=== PATIENT | female | born 1950 | race Caucasian/White ===

== ENCOUNTER 2018-09-08 03:08 | Inpatient (IN) | payer MEDICARE, OTHER ==
[2018-09-08] MEDS ORDERED: Ondansetron PF 4 MG/2 ML Vial ONE ×2 (03:30→09:10)
[2018-09-08] MEDS ORDERED: Morphine 4 MG/ML VIAL ONE ×4 (03:30→09:15)
[2018-09-08 03:36] LABS: #Lymphocytes 1.4 thou/uL (1.20-3.40); #Monocytes 0.5 thou/uL (0.11-0.59); #Neutrophils 8.4 thou/uL (1.40-6.50); %Basophils 0.4 % (0.0-1.0); %Eosinophils 0.5 % (0.0-10.0); %Lymphocytes 13.3 % (21.0-51.0); %Monocytes 4.8 % (0.0-10.0); %Neutrophils 81.1 % (42.0-75.0); Hemoglobin 15.2 g/dL (12.0-16.0); Mean Corpuscular HGB CONC 34.1 g/dL (32.0-36.0); Mean Corpuscular Volume 96.9 fL (78.0-98.0); Mean Platelet Volume 7.9 fL (7.4-10.4); Platelet Count 219 thou/uL (130-400); RBC Distribution Width 11.4 % (11.5-14.5); Red Blood Cell (RBC) Count 4.59 mill/uL (4.20-5.40); White Blood Cell (WBC) Count 10.4 thou/uL (4.8-10.8)
[2018-09-08 03:59] LABS: ALT (SGPT) 14 U/L (8-55); AST (SGOT) 22 U/L (5-34); Albumin 4.2 g/dL (3.4-4.8); Alkaline Phosphatase 94 U/L (40-150); Anion Gap 17 mmol/L (10-20); BUN (Urea Nitrogen) 18 mg/dL (9.8-20.1); Bilirubin, Total 0.6 mg/dL (0.2-1.2); Calc. Creatinine Clearance 0 mL/min (70-130); Calcium 9.9 mg/dL (7.8-10.44); Carbon Dioxide 24 mmol/L (23-31); Chloride 102 mmol/L (98-107); Estimated GFR-MDRD 65; Globulin 3.8 g/dL (2.4-3.5); Glucose 133 mg/dL (80-115); Lipase 6 U/L (8-78); Potassium 4.5 mmol/L (3.5-5.1); Sodium 138 mmol/L (136-145)
[2018-09-08] MEDS ORDERED: Midazolam HCl 2 mg/2 ml Vial ONE (05:43)
[2018-09-08] MEDS ORDERED: Lidocaine 2% 11 ML SYR FS SCH (06:00)
--- NOTE | 2018-09-08 07:34 | CT ---
CT OF THE ABDOMEN AND PELVIS WITH IV CONTRAST: Date: 09/08/18 INDICATION: Abdominal pain with lower abdominal pain beginning around 1800 hours last night with nausea and vomit ing. COMPARISON: CT of the abdomen and pelvis dated 12/05/14. FINDINGS: There are dilated loops of small bowel within the central abdomen and right lower quadrant with trans ition to normal caliber bowel within the right lower quadrant of the abdomen. Findings are suspicious for presence of a partial small bowel obstruction with a transition zone in the right lower quadrant of the abdomen, most evident on image 66 of series 2. This is in a similar location than on the prio r exam. Downstream small bowel are decompressed with accentuation of the wall suggesting presence of a component of enteritis. Small amount of free fluid is present within the pelvis and right lower debora drant mesentery. The terminal ileum has a normal appearance. There is a normal appendix in the right lower quadrant. Gas is present within the colon and rectum. Bladder is unremarkable appearing. The gallbladder is surgically absent. The pancreas, spleen, liver, adrenal glands, and kidneys are no rmal appearing. No acute osseous abnormality is evident. IMPRESSION: Findings suspicious for a moderate grade partial small bowel obstruction with transition zone seen wi thin the right lower quadrant of the abdomen. There is some mild free fluid present within the right lower quadrant of the abdomen and pelvis. The distal nonobstructed small bowel is decompressed accent uating the woods. A component of enteritis cannot be entirely excluded, but is felt to be less likely . The terminal ileum itself has a normal appearance. Surgical consultation is recommended. POS: [facility]
[2018-09-08] MEDS ORDERED: Ketorolac Tromethamine 30 MG/ML VIAL IVP PRN (07:40)
[2018-09-08] MEDS ORDERED: Acetaminophen 1,000 MG in Premix Bag 1 BAG IVPB PRN (07:40)
[2018-09-08] MEDS ORDERED: Ketorolac Tromethamine 30 MG/ML VIAL IVP SCH (07:45)
[2018-09-08] MEDS ORDERED: Acetaminophen 1,000 MG in Premix Bag 1 BAG IVPB SCH (07:45)
[2018-09-08] MEDS ORDERED: Morphine 4 MG/ML VIAL SLOW IVP PRN ×2 (07:57→08:00)
--- NOTE | 2018-09-08 08:09 | RAD ---
CHEST 1 VIEW: Date: 09/08/18 HISTORY: NG tube placement. COMPARISON: None. FINDINGS: Normal cardiac silhouette. Pulmonary vessels and hilum are normal. Visualized costophrenic angles and lung parenchyma are clear. Current study is not tailored to assess for pneumothorax as the lung apic es are excluded. Nasogastric tube terminates in the left upper quadrant. IMPRESSION: Nasogastric tube terminates in the left upper quadrant. POS: [facility]
[2018-09-08] MEDS ORDERED: Pantoprazole 40 MG VIAL ONE (09:00)
[2018-09-08] MEDS: Pantoprazole 40 MG VIAL IVP SCH (09:09)
[2018-09-08] MEDS ORDERED: Ketorolac Tromethamine 30 MG/ML VIAL ONE (09:10)
[2018-09-08] MEDS: Ondansetron PF 4 MG/2 ML Vial IVP PRN ×3 (09:14→22:35)
[2018-09-08] MEDS: Morphine 4 MG/ML VIAL SLOW IVP PRN ×5 (09:17→22:21)
--- NOTE | 2018-09-08 09:46 | HP ---
HISTORY OF PRESENT ILLNESS: Trisha Brooks is a 68-year-old female, single, lives alone, experienced acute onset of abdominal pain yesterday associated with nausea and vomiting. Last bowel movement was yesterday morning prior to the onset of the pain. The pain was so severe, she presented to the emergency room after failing to manage this at home. In the emergency room, she was noted to have a normal comprehensive metabolic profile, white count 10, hemoglobin 15. Abdominopelvic CAT scan revealed findings suggestive of partial bowel obstruction. She does have stool throughout her colon. She had an NG-tube placed to about 65 cm. This has given her a very little relief. She continues to complain of abdominal pain, generalized. The patient reports having experienced a similar episode in 2014, and she was admitted to this facility and managed nonoperatively. She was discharged home the next day after tolerating diet and passing flatus. In the interval, she has not had any problems. She has not had any episodes of pain similar to these 2 episodes. ALLERGIES: NONE. SOCIAL HISTORY: Tobacco, none. Alcohol, none. MEDICATIONS: 1. Ambien 5 mg at bedtime. 2. Simvastatin 40 mg at bedtime. 3. Aspirin 81 mg a day. PAST SURGICAL HISTORY: in the past, hysterectomy without salpingo-oophorectomy. Laparoscopic cholecystectomy. She had a colonoscopy last year. PAST MEDICAL HISTORY: Elevated cholesterol and anxiety. REVIEW OF SYSTEMS: Ten-point noncontributory. CARDIAC: Noncontributory. PULMONARY: Noncontributory. PHYSICAL EXAMINATION: VITAL SIGNS: Respiratory rate 22, temperature 98.2 degrees, blood pressure 141/83, and heart rate 100. HEAD, EARS, EYES, NOSE AND THROAT: Unremarkable. LUNGS: Clear to auscultation. CARDIAC: Regular rate and rhythm without murmur or gallop. ABDOMEN: Soft. Bowel sounds are minimal. Diffuse tenderness without peritoneal signs. She has voluntary guarding. EXTREMITIES: No ankle edema. Homans negative. NEUROLOGIC: Intact. No focal deficit. Sclerae are nonicteric. SKIN: Normal. No neck masses. Palpable radial and pedal pulses. No lymphadenopathy. ASSESSMENT AND PLAN: History and exam and imaging consistent with bowel obstruction, possibly partial. She has not had a bowel movement since yesterday morning. She has not passed flatus since being in the hospital. NG-tube has given her minimal relief. We will allow sips and chips, provide analgesics, obtain abdominal x-rays. We will repeat abdominal x-rays today, continue NG-tube suction, and make further recommendation based on clinical course, most likely obtain a small-bowel follow-through through her NG-tube tomorrow, Friday. Job ID: [id number]
[2018-09-08] MEDS: Lactated Ringer's 1,000 ML IV SCH ×2 (11:40→18:04)
[2018-09-08 12:37] VITALS: BMI 43.2
[2018-09-08 18:36] LABS: Bilirubin Small (Negative); Blood, Urine Negative (Negative); Clarity CLEAR (Clear); Glucose, Urine (Dipstick) Negative (Negative); Leukocyte Negative (Negative); Nitrite Negative (Negative); Protein, Urine (Dipstick) Trace mg/dL (Neg-Trace); pH, Urine 5.5 (5.0-9.0)
[2018-09-08 18:38] LABS: Specific Gravity, Urine Greater than 1.060 (1.002-1.036)
--- NOTE | 2018-09-08 18:40 | RAD ---
KUB AND UPRIGHT: 09/08/18 HISTORY: Followup small bowel obstruction with NG tube placement. There is air within some slightly distended small bowel loops. There is some air within the colon. An NG tube is seen. The tip is in the fundus region of the stomach. The upright film does not include t he hemidiaphragms and evaluation for free air is not possible. In reviewing the previous CT done luiz ier, the degree of small bowel distention is felt to be similar. IMPRESSION: 1. Stable distention to the small bowel loops. 2. NG tube with the tip in the left upper quadrant of the abdomen. POS: [facility]
[2018-09-08] MEDS ORDERED: Enoxaparin Sodium 40 MG/0.4 ML SYRINGE SC SCH (21:00)
[2018-09-09] MEDS: Lactated Ringer's 1,000 ML IV SCH ×3 (00:19→17:09)
[2018-09-09 06:55] LABS: #Eosinphils 0.1 thou/uL (0.0-0.7); #Lymphocytes 1.5 thou/uL (1.20-3.40); #Monocytes 0.6 thou/uL (0.11-0.59); #Neutrophils 4.3 thou/uL (1.40-6.50); %Basophils 0.1 % (0.0-1.0); %Eosinophils 1.3 % (0.0-10.0); %Lymphocytes 22.5 % (21.0-51.0); %Monocytes 9.5 % (0.0-10.0); %Neutrophils 66.6 % (42.0-75.0); Hemoglobin 12.7 g/dL (12.0-16.0); Mean Corpuscular HGB CONC 33.3 g/dL (32.0-36.0); Mean Corpuscular Hemoglobin 32.7 pg (27.0-31.0); Mean Corpuscular Volume 98.3 fL (78.0-98.0); Mean Platelet Volume 7.7 fL (7.4-10.4); Platelet Count 167 thou/uL (130-400); RBC Distribution Width 11.3 % (11.5-14.5); Red Blood Cell (RBC) Count 3.89 mill/uL (4.20-5.40); White Blood Cell (WBC) Count 6.4 thou/uL (4.8-10.8)
[2018-09-09 07:09] LABS: ALT (SGPT) 15 U/L (8-55); AST (SGOT) 18 U/L (5-34); Albumin 3.5 g/dL (3.4-4.8); Alkaline Phosphatase 70 U/L (40-150); Anion Gap 10 mmol/L (10-20); BUN (Urea Nitrogen) 21 mg/dL (9.8-20.1); Bilirubin, Total 1.2 mg/dL (0.2-1.2); Calc. Creatinine Clearance 113 mL/min (70-130); Calcium 8.9 mg/dL (7.8-10.44); Carbon Dioxide 31 mmol/L (23-31); Chloride 103 mmol/L (98-107); Estimated GFR-MDRD 70; Globulin 2.8 g/dL (2.4-3.5); Glucose 101 mg/dL (80-115); Potassium 4.5 mmol/L (3.5-5.1); Protein, Total 6.3 g/dL (6.0-8.3); Sodium 139 mmol/L (136-145)
--- NOTE | 2018-09-09 10:19 | RAD ---
SMALL BOWEL FOLLOW THROUGH: INDICATION: Small bowel obstruction. COMPARISON: Comparison is made to 09/08/2018 CT exam. FINDINGS: The enteric contrast administration was performed with radiographic assessment for 1-1/2 hours. Ther e is contrast opacification of mildly distended loops of small bowel. By 1-1/2 hours, there is contr ast traversing the colon to the level of the rectum. IMPRESSION: Persistent mild distention of small bowel. There is contrast traversing to the level of the rectum by 1-1/2 hours. Findings are most consistent with a partial, low-grade bowel obstruction/ileus. POS: [facility]
[2018-09-09] MEDS: Pantoprazole 40 MG VIAL IVP SCH (10:36)
[2018-09-09] MEDS ORDERED: MD-Gastroview 120 ML BOT ONE (11:35)
[2018-09-09 16:18] VITALS: TEMP 97.9
--- NOTE | 2018-09-09 18:47 | PRG ---
DATE OF SERVICE: 09/09/2018 SUBJECTIVE: Trisha Brooks pulled out her NG tube this morning. OBJECTIVE: Temperature 97.9, heart rate 98, and blood pressure 112/70. NG tube output was negligible. She underwent a Gastrografin small-bowel follow-through with oral consumption of Gastrografin. Study revealed contrast traversed to the small bowel and into the colon with 1-1/2 hours. There were some mildly distended loops of small bowel. The patient has had multiple bowel movements and is tolerating her diet. She is not having any abdominal pain. LABORATORY DATA: White count 6, hemoglobin 12.7. Comprehensive metabolic profile normal. PLAN: Plan is for discharge home and I will follow up as needed. Resume home medication. She takes one [place] a day for knee pain, [place] 10/325, [facility]. I have told her to avoid taking this and that she should be able to manage her knee pain with Tylenol, nonsteroidal anti-inflammatory agents, and Ultram if necessary. She should avoid narcotics. She should take MiraLAX daily, fiber daily. She will be discharged home today. Follow up in my office as needed. Job ID: [id number]
--- NOTE | 2018-09-09 19:19 | DIS ---
DATE OF ADMISSION: 09/08/2018 DATE OF DISCHARGE: 09/09/2018 DISCHARGE DIAGNOSIS: CT scan of the abdomen and pelvis this admission suggested small-bowel follow-through with distended small bowel loops and transition zone. She has had a previous cholecystectomy and hysterectomy. The patient had NG tube placed to suction overnight and had very little out this morning. She pulled out her NG tube this morning. She underwent oral consumption of contrast, Gastrografin and had small bowel follow-through traversing the small bowel and colon with an hour and a half. She has some mildly dilated loops of small bowel, but otherwise doing well, tolerated diet. She is discharged home at this time to follow up in my office as needed. She takes [place] every day for knee pain . She was told she could take it four times a day, but she has been taking once a day. I have recommended she stop taking this and use Tylenol, [id number] nonsteroidals and consider obtaining Ultram for knee pain and avoid narcotics. She should take MiraLAX and Citrucel daily. She should follow up in my office as needed. She will resume her home medications except for avoiding the hydrocodone; simvastatin 40 mg h.s., Ambien 5 mg h.s., and aspirin 81 mg a day. Job ID: [id number]
[2018-09-09 20:40] VITALS: BP 119/74
[2018-09-09] MEDS ORDERED: Citrucel 500 MG TAB PO SCH (21:00)
[2018-09-10] MEDS ORDERED: Polyethylene Glycol 3350 17 GM Packet PO SCH (09:00)
== END 2018-09-09 21:23 | disposition home or self-care (01) | DRG 395 ==
LOC: ERS 03:08 → ERHOLD 06:31 → T4-B 11:00
PROVIDERS: ADMIT Specialist; ATTEND Specialist
DX: K63.89 Other specified diseases of intestine (principal); F41.9 Anxiety disorder, unspecified; Z79.82 Long term (current) use of aspirin; Z90.710 Acquired absence of both cervix and uterus; Z90.49 Acquired absence of other specified parts of digestive tract
CPT/HCPCS: 36415; 71045; 74019; 74177; 74250; 80053; 81003; 83690; 84484; 85025; 93005; 96361; 96374; 96375; 96376; C9113; J0131; J1650; J1885; J2250; J2270; J2405; J7120; Q9963